=== PATIENT | male | born 1945 | race Caucasian/White ===

== ENCOUNTER 2022-02-27 17:16 | Emergency (ER) | payer MEDICARE, MEDICAID ==
[~2022-02-27] VITALS: Ht 188 cm; Wt 91.8 kg
[2022-02-27 17:55] VITALS: BP 113/94
[2022-02-27] MEDS ORDERED: cyclobenzaprine 10mg tablet PO ONE (18:50)
[2022-02-27] MEDS ORDERED: CYCL-1 PO (18:53)
== END 2022-02-27 19:04 | disposition home or self-care (01) ==
LOC: ER 17:17
DX: M62.838 Other muscle spasm (principal); M54.2 Cervicalgia; Z79.899 Other long term (current) drug therapy
CPT/HCPCS: 99283

== ENCOUNTER 2023-12-18 13:24 | Emergency (ER) | payer MEDICARE, MEDICAID ==
[~2023-12-18] VITALS: Ht 188 cm; Wt 93.2 kg
[~2023-12-18 13:24] MED LIST: CYCL-1 PO
[2023-12-18 13:41] VITALS: BP 155/87; PULSE 75; RESP 20; O2SAT 95
[2023-12-18] MEDS ORDERED: BUPIVAcaine/PF 2.5mg/ml (0.25%) 10ml vial ONE (13:47)
[2023-12-18] MEDS ORDERED: LIDOcaine 1% 30ml preserv. free vial ONE (13:47)
[2023-12-18] MEDS ORDERED: ALBU8HFA INH (14:43)
[2023-12-18] MEDS ORDERED: BENZ-38 PO (14:43)
[2023-12-18] MEDS ORDERED: PRED20TA PO (14:43)
[2023-12-18] MEDS ORDERED: AZIT250T83 PO (14:43)
[2023-12-18 14:48] VITALS: TEMP 97.5
== END 2023-12-18 14:48 | disposition home or self-care (01) ==
LOC: ER 13:24
DX: J22 Unspecified acute lower respiratory infection (principal)
CPT/HCPCS: 71045; 99283; J3490

== ENCOUNTER 2024-03-26 10:29 | Emergency (ER) | payer MEDICARE, MEDICAID ==
[~2024-03-26] VITALS: Ht 185.4 cm; Wt 86.4 kg
[2024-03-26] MEDS ORDERED: MUPI22OI30 TP (10:59)
[2024-03-26] MEDS: bacitracin 15gm ointment TP ONE (11:20)
[2024-03-26 11:23] VITALS: BP 140/81; PULSE 79; RESP 16; TEMP 98; O2SAT 99
== END 2024-03-26 11:25 | disposition home or self-care (01) ==
LOC: ER 10:29
DX: R23.4 Changes in skin texture (principal); Z79.899 Other long term (current) drug therapy
CPT/HCPCS: 29130; 99283

== ENCOUNTER 2024-04-20 07:23 | Emergency (ER) | payer MEDICARE, MEDICAID ==
[~2024-04-20] VITALS: Ht 188 cm; Wt 92.1 kg
[2024-04-20 07:30] VITALS: BP 142/85; PULSE 68; RESP 18; TEMP 97.8; O2SAT 92
== END 2024-04-20 08:00 | disposition home or self-care (01) ==
LOC: ER 07:24
DX: S51.012A Laceration without foreign body of left elbow, initial encounter (principal); Z79.899 Other long term (current) drug therapy; W18.39XA Other fall on same level, initial encounter; Y93.89 Activity, other specified; Y92.89 Other specified places as the place of occurrence of the external cause; Y99.8 Other external cause status
CPT/HCPCS: 99284